=== PATIENT | female | born 1980 | race Caucasian/White ===

== ENCOUNTER 2016-10-18 13:28 | Outpatient (CLI) | payer OTHER ==
[~2016-10-18] VITALS: Ht 157.5 cm; Wt 100.4 kg
--- NOTE | 2016-10-18 14:01 | RADRPT ---
PROCEDURE: OB ultrasound for biophysical profile CLINICAL INDICATION: Post dates TECHNIQUE: Multiple sonographic images of the pelvis were obtained. Transabdominal view of the gr avid uterus are available for review. The images were reviewed on a PACS workstation. COMPARISON: None FINDINGS: breathing movement = 2/2 tone = 2/2 motion = 2/2 LETTY = 2/2 LETTY = 13.3 cm Single live intrauterine with cardiac activity. heart rate equals 127 beats p er minute. Presentation is cephalic. The placenta is anterior. IMPRESSION: 1. Single viable intrauterine gestation. 2. Biophysical profile = 8/8. 3. LETTY = 13.3 cm. RPTAT: KK .Kaiser Feldman MD, MD Date Time Electronically viewed and signed by .Kaiser Feldman MD, MD on 10/18/2016 14:00 .B/
[2016-10-18] MEDS ORDERED: FERR325T5 PO (14:05)
[2016-10-18] MEDS ORDERED: PRENAT PO (14:05)
[2016-10-18 14:06] VITALS: BP 123/65; PULSE 80; RESP 18; Ht 157.5 cm; Wt 100.4 kg
--- NOTE | 2016-10-18 14:37 | TRIAGE ---
OB Triage Datetime Report Generated by CPN: 10/18/2016 14:36 Datetime: 10/18/2016 14:27 Stage of : OB Triage Maternal Assessment Level of Consciousness: Fully Conscious Labor Evaluation Frequency: 4-6 Monitor Mode: External Duration (sec)2399: 80-130 Quality: Mild Resting Tone [place]: Relaxed Heart Rate FHR Baseline Rate: 125 Monitor Mode: External US Variability: Moderate 6-25 bpm Accelerations: 15X15 Decelerations: None Pain Assessment Pain Scale: 0 Pain Presence: None/Denies Pain Type: N/A Pain Goal: 3 Vaginal Exam Membrane Status: Intact Vaginal Bleeding: None Datetime: 10/18/2016 14:02 Assessment Type: Triage Maternal Assessment Level of Consciousness: Fully Conscious DTR's/Clonus: DTRs 2+; No Clonus Headache: Denies Blurred Vision: No Respiratory Effort: Unlabored; Regular Rhythm; Equal Expansion Breath Sounds, Left: Clear and Equal Breath Sounds, Right: Clear and Equal Nausea/Vomiting: Denies RUQ Epigastric Pain: Denies Lower Extremities Edema: None Degree: None Upper Extremities Edema: None Degree: None Facial Edema: None Fall Risk Assessment History of Falling: (0) No Secondary Diagnosis: (0) No Ambulatory Aid: (0) Bedrest/Nurse Assist IV Therapy: (0) No Gait: (0) Normal/Bedrest/Immobile Mental Status: (0) Oriented to Own Ability Fall Score: 0 Fall Risk Score Definition: No Risk: No action required Datetime: 10/18/2016 13:45 Time of Arrival: 10/18/2016 13:24 EGA: 40.4 Arrived By: Ambulatory Arrived From: Home Movement: Present Contractions: Denies/Absent Rupture of Membranes: Denies Vaginal Discharge: Denies Recent Sexual Intercouse: Denies Abdominal Trauma: Not Applicable Patient Complaints: None Time Provider Notified: 10/18/2016 14:36 Provider Notified: DEDE Initial Plan: NST/BPP
--- NOTE | 2016-10-18 15:00 | PN ---
Date/Time of Note Date/Time of Note DATE: 10/18/16 TIME: 14:54 OB Subjective Subjective Subjective October 18, 2016. This is a triage consult the patient is a 36 years old 7 para 5 living , 1. She is now 40 weeks and 4 days . Came in due to postmaturity to be evaluated . Lap reports were so for normal. Blood type A positive, hepatitis B surface antigen nonreactive, HIV nonreactive , RPR neg. Culture for GBS was neg and she is immune to rubella . Chlamydia and gonorrhea also were negative. Currently she is taking her iron and vitamin pills . On examination her vital signs were basically within normal limit : with blood pressure 123/65. pulse rate 80, respiration 18, and temperature 97.9. On examination her ear nose throat appears to be normal. Neck is normal no neck vein distention no thyromegaly no lymph. Node enlargement in the body. Chest is clear to auscultation and percussion ,no rales. Heart normal sinus rhythm ,no murmur. Abdomen is soft. At this time she does not feel any contraction, however the tracing shows that she has fairly infrequent contractions. heart tone is normal with reactive NST with good acceleration and variability, no deceleration. On ultrasound study; biophysical profile is 8 out of 8. LETTY is 13.3 cm. As I mentioned her NST was reactive category 1. Disposition: Patient was discharged home with instruction to return in the hospital in case of contractions or bleeding or evidence of labor. Other than that 3 days ;later if she does not go into labor; will be admitted for induction. End of dictation thank you LANE BARRETT MD Oct 18, 2016 15:00
== END 2016-10-18 14:57 | disposition home or self-care (01) ==
LOC: OBT 13:28 → L-D 13:29 → OBT 14:57
PROVIDERS: ATTEND Specialist
DX: O48.0 Post-term pregnancy (principal); Z3A.40 40 weeks gestation of pregnancy
CPT/HCPCS: 76818; Z7500; G0463

== ENCOUNTER 2016-10-19 00:29 | Inpatient (IN) | payer OTHER ==
[~2016-10-19] VITALS: Ht 157.5 cm; Wt 100.1 kg
[2016-10-19] VITALS (9 sets, daily range): BP systolic 110–143; BP diastolic 59–87; PULSE 80–96; RESP 16–20; Ht 157.5 cm; Wt 100.1 kg
[~2016-10-19 00:29] MED LIST: FERR325T5 PO; PRENAT PO
[2016-10-19] MEDS ORDERED: BUTORPHANOL 2 MG INJ IV PRN (01:30)
[2016-10-19] MEDS ORDERED: METHYLERGONOVINE 0.2 MG INJ IM PRN (01:30)
[2016-10-19] MEDS ORDERED: OXYTOCIN 30 UNITS/LR 500 ML IV PRN ×2 (01:30→14:00)
[2016-10-19] MEDS ORDERED: IBUPROFEN 600 MG TAB PO PRN (01:30)
[2016-10-19] MEDS ORDERED: OXYTOCIN 30 UNITS/LR 500 ML IV SCH ×3 (01:30)
[2016-10-19] MEDS ORDERED: CARBOPROST 250 MCG INJ IM PRN ×2 (01:30→14:00)
[2016-10-19] MEDS ORDERED: LIDOCAINE 1% (MPF) 30 ML INJ INJ PRN (01:30)
[2016-10-19] MEDS ORDERED: MISOPROSTOL 200 MCG TAB PR PRN ×2 (01:30→14:00)
[2016-10-19] MEDS: LACTATED RINGER'S 1,000 ML IV SCH ×3 (01:56→17:46)
[2016-10-19] MEDS ORDERED: LACTATED RINGER'S 1,000 ML IV PRN (02:00)
[2016-10-19 02:08] LABS: BASOPHILS % 0.2 % (0.0-2.0); EOSINOPHILS % 0.6 % (0.0-7.0); HEMATOCRIT 33.3 % (37.0-47.0); HEMOGLOBIN 10.8 g/dl (12.0-16.0); LYMPHOCYTES # 2.1 10^3/ul (0.8-2.9); LYMPHOCYTES % 28.1 % (15.0-51.0); MEAN CORPUSCULAR HEMOGLOBIN 26.5 pg (29.0-33.0); MEAN CORPUSCULAR HGB CONC 32.4 g/dl (32.0-37.0); MEAN CORPUSCULAR VOLUME 81.8 fl (82.0-101.0); MEAN PLATELET VOLUME 9.2 fl (7.4-10.4); MONOCYTE # 0.6 10^3/ul (0.3-0.9); MONOCYTES % 7.6 % (0.0-11.0); NEUTROPHIL # 4.7 10^3/ul (1.6-7.5); NEUTROPHILS % 63.5 % (39.0-77.0); PLATELET COUNT 240 10^3/UL (140-440); RED BLOOD COUNT 4.07 10^6/ul (4.20-5.40); UNCORRECTED WBC 7.4 10^3/ul (4.8-10.8); WHITE BLOOD COUNT 7.4 10^3/ul (4.8-10.8)
[2016-10-19 02:18] LABS: CONDITION 1; INR 0.93; LH ANALYZER COMMENTS 1; PARTIAL THROMBOPLASTIN TIME 24.7 Sec (25.0-35.0); PROTIME 12.5 Sec (12.2-14.2)
--- NOTE | 2016-10-19 13:48 | HP ---
Date/Time of Note Date/Time of Note DATE: 10/19/16 TIME: 13:46 OB - History Hx of Present Free Text/Dictation 40 + weeks presented in labor. Multip Care: Good Care Ultrasounds: Normal mid trimester US Obstetrical Complications: None Medical Complications: None Past Family/Social History * Past Medical, Surgical, Family and Obstetric Histories reviewed from chart. OB Admission Exam Vital Signs Vital Signs Vital Signs Date Time Temp Pulse Resp B/P Pulse Ox O2 Delivery O2 Flow Rate FiO2 10/19/16 00:41 98.1 80 18 120/68 Room Air Physical Exam HEENT: WNL Heart: Rhythm Normal Lungs: Clear, Equal Abdomen: WNL Extremities: Normal Reflexes: Normal Cervical Dilatation: 4cm Last 72 hours Lab Results CBC & BMP 10/19/16 01:48 OB Assessment/Plan Reason for admission: active labor Plan: Expectant Management SYED AGUAYO MD Oct 19, 2016 13:48
--- NOTE | 2016-10-19 13:50 | LDN ---
Date/Time of Note Date/Time of Note DATE: 10/19/16 TIME: 13:48 Delivery Summary s/p . she progressed very rapidly and I arrived minutes after . no lacerations. placenta delivered intact and spontaneously by me. EBL 300. cord x 1. APGARS 9/9 Placenta Delivered: Spontaneously Meconium: none Perineum intact?: Yes Anesthesia type: None Estimated blood loss: 300 Sponge & Needle done & correct: Yes All needle counts correct: Yes Any foreign bodies felt in the: No Problems: Delivery Information Sex Infant Sex: female Apgars 1 Minute: 9 5 Minute: 9 Suctioning Nose & mouth suctioned at maximiliano: No Delee suction performed: No Umbilical Cord Umbilical cord with: 3 Vessels Cord presentations: nuchal cord Cord Blood was obtained: Yes SYED AGUAYO MD Oct 19, 2016 13:50
[2016-10-19] MEDS ORDERED: ACETAMINOPHEN/CODEINE #3 TAB PO PRN ×2 (14:00)
[2016-10-19] MEDS ORDERED: BENZOCAINE 20% 56 ML SPRAY TOP PRN (14:00)
[2016-10-19] MEDS ORDERED: DIPHENHYDRAMINE 50 MG INJ IV PRN (14:00)
[2016-10-19] MEDS ORDERED: ONDANSETRON 4 MG TAB PO PRN (14:00)
[2016-10-19] MEDS ORDERED: LANOLIN 7 GM TUBE TOP PRN (14:00)
[2016-10-19] MEDS ORDERED: ONDANSETRON 4 MG INJ IV PRN (14:00)
[2016-10-19] MEDS ORDERED: NA PHOSPHATE/BIPHOS 133 ML ENEMA PR PRN (14:00)
[2016-10-19] MEDS ORDERED: WITCH HAZEL/GLYCERIN PAD PR PRN (14:00)
[2016-10-19] MEDS ORDERED: DIPHENHYDRAMINE 25 MG CAP PO PRN (14:00)
[2016-10-19] MEDS ORDERED: DIBUCAINE 1% 30 GM OINT PR PRN (14:00)
[2016-10-19] MEDS ORDERED: SENNA/DOCUSATE NA (8.6MG/50MG) TAB PO PRN (14:00)
[2016-10-19] MEDS ORDERED: MAGNESIUM HYDROXIDE 30ML CUP PO PRN (14:00)
--- NOTE | 2016-10-19 15:06 | DELSUM ---
Delivery Summary A-C Datetime Report Generated by CPN: 10/19/2016 15:05 DELIVERY PERSONNEL Brewer Helper: Soleimani, Alison MATERNAL INFORMATION Delivery Anesthesia: None Medications in Delivery: pitocin 30 units/ LR 500cc Estimated Blood Loss (ml): 300 Placenta Cultured: No Maternal Complications: None LABOR SUMMARY EDC: 10/14/2016 00:00 No. Babies in Womb: 1 Attempted: No Labor Anesthesia: IV Sedation LABOR INFORMATION Reason for Induction: Not Applicable Onset of Labor: 10/18/2016 22:30 Complete Dilatation: 10/19/2016 13:06 Oxytocin: Augmentation Group B Beta Strep: Negative Antibiotics # of Doses: 0 Antibiotics Time of Last Dose: n/a Steroids Given: None Reason Steroids Not Administered: Not Applicable MEMBRANES Membranes Rupture Method: Spontaneous Rupture of Membranes: 10/19/2016 13:03 Length of Rupture (hr): 0.15 Amniotic Fluid Color: Clear Amniotic Fluid Color: Clear Amniotic Fluid Amount: Moderate Amniotic Fluid Amount: Moderate Amniotic Fluid Odor: None Amniotic Fluid Odor: None STAGES OF LABOR Stage 1 hr: 14 Stage 1 min: 36 Stage 2 hr: 0 Stage 2 min: 6 Stage 3 hr: 0 Stage 3 min: 26 Total Time in Labor hr: 15 Total Time in Labor min: 8 VAGINAL DELIVERY Episiotomy: None Laceration Type: None Initial Vag Sponge Count: 20 Final Vag Sponge Count: 20 Initial Vag Sharps Count: 1 Final Vag Sharps Count: 1 Sponge Count Correct: Yes Sharps Count Correct: Yes BABY A INFORMATION Infant Delivery Date/Time: 10/19/2016 13:12 Method of Delivery: Vaginal Method of Delivery: Vaginal Born in Route : No : N/A Forceps: N/A Vacuum Extraction: N/A Shoulder Dystocia : N/A SHOULDER DYSTOCIA BABY A Delivery Date/Time: 10/19/2016 13:12 PRESENTATION/POSITION BABY A Presentation: Cephalic Cephalic Presentation: Vertex Vertex Position: Left Occipital Anterior Breech Presentation: N/A PLACENTA INFORMATION BABY A Placenta Delivery Time : 10/19/2016 13:38 Placenta Method of Delivery: Spontaneous Placenta Status: Delivered SCORES BABY A Heart Rate 1 min: >100 bpm Resp Effort 1 min: Good Cry Reflex Irritability 1 min: Cough/Sneeze/Pulls Away Muscle Tone 1 min: Active Motion Color 1 min: Body Naylor, Extremit Blue Resuscitation Effort 1 min: Tactile Stimulation SCORE 1 MIN: 9 Heart Rate 5 min: >100 bpm Resp Effort 5 min: Good Cry Reflex Irritability 5 min: Cough/Sneeze/Pulls Away Muscle Tone 5 min: Active Motion Color 5 min: Body Naylor, Extremit Blue SCORE 5 MIN: 9 INFORMATION BABY A Gestational Age at Delivery: 40.5 Gestational Status: Full Term- 39- 40.6 Weeks Infant Outcome : Liveborn Condition : Stable Sex: Female Sex: Female IDENTIFICATION/MEDS BABY A ID Band Number: [id number] ID Band Location: Right Leg; Left Arm Sensor Applied: Yes Sensor Number: [id number] Sensor Location : Cord Clamp Vitamin K Given : Not Given Erythromycin Given: Not Given WEIGHT/LENGTH BABY A Birthweight (gm): 3565 Infant Weight (lb): 7 Infant Weight (oz): 14 Length (in): 20.00 Infant Length (cm): 50.80 CORD INFORMATION BABY A No. Cord Vessels: 3 Nuchal Cord : Around shoulder and back x1, Loose Cord Blood Taken: Yes Suction: Mouth; Nose ASSESSMENT BABY A Complications: None Physical Findings at Delivery: Within Normal Limits Infant Respirations: Appears Normal Carpenter Assistant/ALS Called : No Infant Care By: yara cunningham Transferred To: Remains with Mother
[2016-10-19] MEDS: LACTATED RINGER'S 1,000 ML IV* SCH ×2 (16:26→21:44)
[2016-10-19] MEDS: IBUPROFEN 600 MG TAB PO SCH ×2 (17:46→23:43)
[2016-10-19] MEDS: SENNA/DOCUSATE NA (8.6MG/50MG) TAB PO SCH (21:02)
[2016-10-20] MEDS: LACTATED RINGER'S 1,000 ML IV SCH (01:02)
[2016-10-20 04:10] VITALS: BP 112/66; PULSE 84; RESP 18
[2016-10-20] MEDS: IBUPROFEN 600 MG TAB PO SCH ×4 (05:42→23:33)
[2016-10-20] MEDS: LACTATED RINGER'S 1,000 ML IV* SCH (05:44)
--- NOTE | 2016-10-20 07:56 | DS ---
Date/Time of Note Date/Time of Note DATE: 10/20/16 TIME: 07:55 Obstetrical Discharge Record Final Diagnosis Final Diagnosis: Term delivered Vaginal Delivery Obstetrical Delivery: Spontaneous Complications Augmentation: Yes Induction: No Rupture of Membranes: No Condition on Discharge Physical Assessment Voiding: Yes Bowel Movement: Yes Breast: Soft, non-tender, Filling Fundus: Firm Abdomen and Incision: soft and not tender Episiotomy: NA Calf Tenderness: No Patient Condition: Good SYED AGUAYO MD Oct 20, 2016 07:56
[2016-10-20 08:30] VITALS: BP 115/55; PULSE 88; RESP 17
[2016-10-20 09:23] LABS: BASOPHILS % 0.4 % (0.0-2.0); EOSINOPHILS % 0.3 % (0.0-7.0); HEMATOCRIT 29.9 % (37.0-47.0); HEMOGLOBIN 9.8 g/dl (12.0-16.0); LYMPHOCYTES # 1.8 10^3/ul (0.8-2.9); LYMPHOCYTES % 23.8 % (15.0-51.0); MEAN CORPUSCULAR HGB CONC 32.8 g/dl (32.0-37.0); MEAN CORPUSCULAR VOLUME 82.2 fl (82.0-101.0); MEAN PLATELET VOLUME 9.2 fl (7.4-10.4); MONOCYTE # 0.5 10^3/ul (0.3-0.9); MONOCYTES % 6.7 % (0.0-11.0); NEUTROPHIL # 5.1 10^3/ul (1.6-7.5); NEUTROPHILS % 68.8 % (39.0-77.0); PLATELET COUNT 223 10^3/UL (140-440); RED BLOOD COUNT 3.64 10^6/ul (4.20-5.40); RED CELL DISTRIBUTION WIDTH 13.8 % (11.5-14.5); UNCORRECTED WBC 7.4 10^3/ul (4.8-10.8); WHITE BLOOD COUNT 7.4 10^3/ul (4.8-10.8)
[2016-10-20 09:35] LABS: CONDITION 1
[2016-10-20] MEDS: SENNA/DOCUSATE NA (8.6MG/50MG) TAB PO SCH ×2 (10:14→20:33)
[2016-10-20 16:00] VITALS: BP 118/69; PULSE 79; RESP 18
[2016-10-20 20:15] VITALS: BP 102/59; PULSE 87; RESP 18
[2016-10-21 04:15] VITALS: BP 109/61; PULSE 87; RESP 18
[2016-10-21] MEDS: IBUPROFEN 600 MG TAB PO SCH ×2 (05:47→12:18)
[2016-10-21 08:25] VITALS: BP 115/69; PULSE 86; RESP 16
[2016-10-21] MEDS ORDERED: DIPHTH/TET/ACEL PERTUSS (ADULT) 0.5 ML VIAL IM* ONE (09:00)
[2016-10-21] MEDS ORDERED: VARICELLA VACCINE LIVE/PF 1,350 UNIT/0.5 ML ML SC* ONE (09:00)
[2016-10-21] MEDS ORDERED: MEASLES,MUMPS,RUBELLA VACCINE INJ SC* ONE (09:00)
[2016-10-21] MEDS: SENNA/DOCUSATE NA (8.6MG/50MG) TAB PO SCH (09:04)
== END 2016-10-21 15:24 | disposition home or self-care (01) | DRG 775 ==
LOC: OBT 00:29 → L-D 00:29 → OBT 01:10 → PP1 15:19
PROVIDERS: ADMIT Specialist; ATTEND Specialist
PROC: 10E0XZZ Delivery of Products of Conception, External Approach (ICD-10-PCS; principal; 2016-10-19)
PROC: 3E00X4Z Introduction of Serum, Toxoid and Vaccine into Skin and Mucous Membranes, External Approach (ICD-10-PCS; 2016-10-21)
DX: O69.81X0 Labor and delivery complicated by cord around neck, without compression, not applicable or unspecified (principal); Z23 Encounter for immunization; Z3A.40 40 weeks gestation of pregnancy; Z37.0 Single live birth
CPT/HCPCS: 85025; 85610; 85730; 86592; 86900; 86901; 87340; 90715; 90716; G0463; J7120